=== PATIENT | female | born 1960 | race Caucasian/White ===

== ENCOUNTER 2017-07-21 08:37 | Day surgery (SDC) | payer OTHER ==
[2017-07-17 14:31] VITALS: BMI 35.4
[~2017-07-21 08:37] MED LIST: LACTATED RINGERS 1,000 ML IV SCH; LIDOCAINE 1% 20 ML VIAL (10MG/ML) FOR IV START INTRADERMA PRN; MIDAZOLAM 2 MG/2 ML VIAL IV PRN
[2017-07-21 10:27] VITALS: TEMP 97.7
[2017-07-21] MEDS ORDERED: PROPOFOL 10 MG/ML 20 ML VIAL IV ONE (10:54)
--- NOTE | 2017-07-21 11:19 | P.PCN ---
Date of Procedure: 07/21/17 Procedure(s) Performed: Procedure: Colonoscopy and polypectomy. Preoperative diagnosis: Screening for neoplasia. Postoperative diagnosis: Small flat cecal polyp snared but no large polyps or cancer. Preparation: HalfLytely prep. Sedation: Was provided by anesthesia. Brief clinical history: The patient is a 57-year-old female who is scheduled for this evaluation for screening for neoplasia. She had a prior exam more than 10 years ago and she believes she had one polyp removed. She has no abdominal complaints, bleeding or anemia. Procedure: With the patient on her left lateral decubitus position and after informed consent and adequate sedation, the perianal area was inspected and it did not show any fissures or fistulas. There were no masses felt on digital rectal examination. The Olympus CFQ 160L video colonoscope was then inserted in the rectum in the usual fashion and advanced to the cecum. There was a small flat polyp in the cecum which I snared and retrieved by suction but there were no large polyps or cancer. No obvious diverticular disease or other pathology. I retroflexed the endoscope in the rectum before the endoscope was withdrawn. The patient tolerated the procedure well. Plan: The patient was reassured. Will await pathology results. I anticipate repeating this exam in 5 years. She will follow-up with you as planned.
[2017-07-21 11:20] VITALS: RESP 18
[2017-07-21 11:40] VITALS: BP 124/79; PULSE 86
== END 2017-07-21 11:47 | disposition home or self-care (01) ==
LOC: ORWHC2ENDO 08:37
DX: Z12.11 Encounter for screening for malignant neoplasm of colon (principal); K63.5 Polyp of colon; Z86.010 Personal history of colon polyps; R00.0 Tachycardia, unspecified; Z88.2 Allergy status to sulfonamides
CPT/HCPCS: 88305; 45385; J2704

== ENCOUNTER → 2023-06-01 | Outpatient (CLI) | payer MEDICARE ==
--- NOTE | 2023-06-01 16:59 | BD ---
EXAMINATION TYPE: Axial Bone Density DATE OF EXAM: 06/01/2023 CLINICAL HISTORY: 63 years old Female. ICD-10 CODE: M89.9 DISORDER OF BONE, UNSPECIFIED Height: 64 Weight: 215.8 FRAX RISK QUESTIONS: Alcohol (3 or more units per day): no Family History (Parent hip fracture): yes Glucocorticoids (More than 3mos): no (Ex: prednisone, prednisolone, methylprednisolone, dexamethasone, and hydrocortisone). History of Fracture in Adulthood: no Secondary Osteoporosis: 1. Type 1 Diabetes: no 2. Hyperthyroidism: no 3. Menopause before 45: no 4. Malnutrition: no 5. Chronic liver disease: no Rheumatoid Arthritis: no Current Tobacco Use: no RISK FACTORS HISTORY OF: Surgery to Spine/Hip(right/left)/Wrist (right/left): no EXAM MEASUREMENTS: Bone mineral densitometry was performed using the [employer] System. Bone mineral density as measured about the Lumbar spine is: ----- L1-L4(G/cm2): 1.509 T Score Values are as follows: ----- L1: 3.2 ----- L2: 2.7 ----- L3: 2.8 ----- L4: 2.3 ----- L1-L4: 2.7 Z Score Values are as follows: ----- L1: 3.7 ----- L2: 3.2 ----- L3: 3.3 ----- L4: 2.8 ----- L1-L4: 3.2 Bone mineral density : baseline Bone mineral density about the R hip (g/cm2): 1.162 Bone mineral density about the L hip (g/cm2): 1.167 T Score values are as follows: -----R Neck: -0.3 -----L Neck: -0.1 -----R Total: 1.2 -----L Total: 1.3 Z Score values are as follows: -----R Neck: 0.5 -----L Neck: 0.7 -----R Total: 1.6 -----L Total: 1.7 Bone mineral density : baseline FRAX%s: The graph provided illustrates a 12.8 % chance for a major osteoporotic fx and a 0.3% chance for the hips probability for fx in 10 years time. IMPRESSION: Normal (Values between +1 and -1 indicate normal bone mass). Consider repeating this study in 5 year s or sooner if there is some new clinical indication. NOTE: T-SCORE=SD OF THE YOUNG ADULT MEAN.
== END | disposition home or self-care (01) ==
LOC: RADBDWWP 10:31
PROVIDERS: ATTEND Family Medicine
DX: M85.89 Other specified disorders of bone density and structure, multiple sites (principal); M81.0 Age-related osteoporosis without current pathological fracture
CPT/HCPCS: 77080

== ENCOUNTER 2023-07-14 09:30 | Day surgery (SDC) | payer MEDICARE ==
[2023-07-08 16:27] VITALS: BMI 37.2
[2023-07-14] MEDS: LACTATED RINGERS 1,000 ML IV SCH (10:26)
[2023-07-14 10:29] VITALS: RESP 16; TEMP 97.4
[2023-07-14] MEDS ORDERED: PROPOFOL 10 MG/ML 20 ML VIAL IV ONE (11:06)
--- NOTE | 2023-07-14 11:26 | P.PCN ---
Date of Procedure: 07/14/23 Procedure(s) Performed: BRIEF HISTORY: Patient is a 63-year-old pleasant white female scheduled for an elective colonoscopy as a part of Evaluation of prior history of colon polyps. Last colonoscopy was 7 years ago. PROCEDURE PERFORMED: Colonoscopy. PREOPERATIVE DIAGNOSIS: History of colon polyps. IV sedation per Anesthesia. PROCEDURE: After informed consent was obtained, the patient, was brought into the endoscopy unit. IV sedation was administered by Anesthesia under continuous monitoring. Digital rectal examination was normal. Initially the Olympus CF-160 flexible video colonoscope was then inserted in the rectum, gradually advanced into the cecum without any difficulty. Careful examination was performed as the scope was gradually being withdrawn. Ileocecal valve and the appendiceal orifice were visualized and appeared normal. Prep was Fair. Mucosa of the cecum, ascending colon, transverse colon, descending colon, sigmoid colon, and rectum appeared normal. Retroflexion was performed in the rectum and no lesions were seen. The patient tolerated the procedure well. IMPRESSION: Normal-appearing colon from rectum to cecum with no evidence of colorectal neoplasia. RECOMMENDATIONS: Findings of this examination were discussed with the patient As well as a family. She was advised to have a repeat screening colonoscopy in 10 years.
[2023-07-14] MEDS: IV FLUID CONTINUATION 1,000 ML IV ONE (11:30)
[2023-07-14 11:50] VITALS: BP 115/75; PULSE 74
== END 2023-07-14 12:05 | disposition home or self-care (01) ==
LOC: ORWHC2ENDO 09:30
PROVIDERS: ATTEND Internal Medicine Gastroenterology
DX: Z12.11 Encounter for screening for malignant neoplasm of colon (principal); M19.90 Unspecified osteoarthritis, unspecified site; Z86.010 Personal history of colon polyps; Z79.899 Other long term (current) drug therapy; Z88.2 Allergy status to sulfonamides
CPT/HCPCS: J2704; G0105